=== PATIENT | female | born 1990 | race Caucasian/White ===

== ENCOUNTER 2024-12-12 13:34 | Emergency (ER) | payer BC, SELFPAY ==
[2024-12-12 13:48] VITALS: BP 123/82; PULSE 79; RESP 18; TEMP 36.4; O2SAT 97
--- NOTE | 2024-12-12 14:19 | ED.URI ---
HPI - URI/Sore Throat General Chief Complaint: Upper Respiratory Infection Stated Complaint: flu symptoms Time Seen by Provider: 12/12/24 14:19 Source: patient and RN notes reviewed Mode of arrival: ambulatory Limitations: no limitations History of Present Illness HPI Narrative: 34 y/o female presented for c/o nasal congestion, headache, sore throat, and cough. Onset one week. Reports fever up to 101, and started with vomiting yesterday. denies abdominal pain or nausea/vomiting today. Taking Sudafed, Benadryl, and tylenol. Denies sob, wheezing, or lethargy. Her child has similar symptoms. MD elicited complaint: cough Related Data Allergies Allergy/AdvReac Type Severity Reaction Status Date / Time bacitracin (From Neosporin Allergy Mild rash Verified 12/12/24 13:58 ([id number])) neomycin (From Neosporin Allergy Mild rash Verified 12/12/24 13:58 ([id number])) polymyxin B (From Neosporin Allergy Mild rash Verified 12/12/24 13:58 ([id number])) Review of Systems Review of Systems: CONSTITUTIONAL: denies malaise, body aches, chills, sweats, fever EYES: Denies visual changes, redness, or discharge ENT: Reports rhinorrhea, congestion, sinus pain, sore throat CARDIOVASCULAR: Denies chest pain, palpitations, edema RESPIRATORY: Reports cough, post nasal drainage. Denies dyspnea GASTROINTESTINAL: Denies abdominal pain, nausea, vomiting, diarrhea SKIN: Denies rash [facility] Surgical History Surgical History (Updated 12/12/24 @ 14:25 by Precious Hayes, IT APPLICATION DEVELOPMENT MANAGER) History of tonsillectomy Exam Narrative: GENERAL: mildly Ill-appearing, nontoxic no acute distress. EYES: conjunctivae clear ENT: Mucous membranes moist. TMs pearly gaines with dull light reflex bilaterally; no tragal tenderness. Oropharynx erythematous without lesions or exudate, tonsils and uvula absent; no drooling, no hoarseness, no trismus, uvula midline. No tripod positioning, muffled voice, soft palate or pharyngeal wall bulging NECK: Supple. No lymphadenopathy CHEST: Clear to auscultation, breath sounds equal. No wheezing, rhonchi, rales, or stridor. No respiratory distress, speaks in full sentences. HEART: Regular rate and rhythm. No murmur heard. SKIN: Warm, dry, no rash. NEURO: Alert and oriented x3. PSYCH: Normal mood and affect Course Course Emergency Course: Patient is aware of diagnosis, understands and agrees to treatment plan. Anticipatory guidance given. Patient agrees to follow-up as directed and is aware of reasons to seek care at the emergency department. Portions of this record may have been created with voice recognition software Level of Care: Express Care Visit Vital Signs Vital signs: Vital Signs Temperature 97.5 F L 12/12/24 13:48 Pulse Rate 79 12/12/24 13:48 Respiratory Rate 18 12/12/24 13:48 Blood Pressure 123/82 12/12/24 13:48 Pulse Oximetry 97 12/12/24 13:48 Oxygen Delivery Room Air 12/12/24 13:48 Temperature 97.5 F L 12/12/24 13:48 Pulse Rate 79 12/12/24 13:48 Respiratory Rate 18 12/12/24 13:48 Blood Pressure 123/82 12/12/24 13:48 Pulse Oximetry 97 12/12/24 13:48 Oxygen Delivery Room Air 12/12/24 13:48 reviewed MDM - URI/Sore Throat MDM Narrative Medical decision making narrative: Discussed physical exam findings, neg flu and covid. Will send aumenting for URI Advised supportive measures and signs/symptoms to go to the ER. Pt is appropriate for outpt treatment and f/u. Differential Diagnosis Differential diagnosis: Likely upper respiratory infection, sinusitis and viral infection Discharge Plan Discharge Clinical Impression: Upper respiratory infection Patient Disposition: Home Condition: Stable Instructions: Antibiotic Form, Rhinosinusitis (ED) Additional Instructions: flu and COVID negative. Take antibiotic as directed Recommendations: Flonase spray and Zyrtec (or Claritin/Deisy) over the counter Cough syrup may cause drowsiness; avoid driving or take it at night time. Tylenol 1000mg every 8 hours as needed for pain Symptomatic treatment includes: rest, fluids, and increase humidity of the air at home. Follow up with your primary care provider in 1 week. Go to the ER for worsening symptoms or concerns. Patient Language: Georgian Prescriptions: New amoxicillin-pot clavulanate 875-125 mg tablet 1 tablet PO Q12H 7 Days Qty: 14 0RF Follow-up/Referrals: UNKNOWN,DOCTOR [Primary Care Provider] Stand Alone Forms: Work/School Release IP
[2024-12-12 15:21] LABS: EDCOVIDSCREEN Negative (Negative); EDINFLUASCREEN Negative (Negative); EDINFLUBSCREEN Negative (Negative)
== END 2024-12-12 14:30 | disposition home or self-care (01) ==
PROVIDERS: Emergency Provider Nurse Practitioner Family
DX: J06.9 Acute upper respiratory infection, unspecified (principal); Z20.822 Contact with and (suspected) exposure to COVID-19
CPT/HCPCS: 87426; 87804; 99203; G0463